=== PATIENT | male | born 1960 | race Caucasian/White ===

== ENCOUNTER 2017-12-06 07:27 | Emergency (ER) | payer MEDICAID, MEDICARE ==
--- NOTE | 2017-12-06 07:37 | EDM.PDOC ---
ED HPI GENERAL MEDICAL PROBLEM - General Stated Complaint: PATIENT IS FEELING ILL Time Seen by Provider: 12/06/17 07:31 Source of Information: Reports: Patient History Limitations: Reports: No Limitations - History of Present Illness INITIAL COMMENTS - FREE TEXT/NARRATIVE: History of present illness: []Patient presents with left-sided facial tingling since 5 AM this morning when he awoke. Patient has had 2 weeks of not feeling well and saw his doctor 3 days ago who diagnosed him with fluid in his lungs. His physician increased his water pill at that time. Review of systems: As per history of present illness and below otherwise all systems reviewed and negative. Past medical history: As per history of present illness and as reviewed below otherwise noncontributory. Surgical history: As per history of present illness and as reviewed below otherwise noncontributory. Social history: No reported history of drug or alcohol abuse. Family history: As per history of present illness and as reviewed below otherwise noncontributory. Physical exam: General: Well developed, well nourished in NAD HEENT: Atraumatic, normocephalic, pupils reactive, negative for conjunctival pallor or scleral icterus, mucous membranes moist, throat clear, neck supple, nontender, trachea midline. Lungs: Clear to auscultation, breath sounds equal bilaterally, chest nontender. Heart: S1S2, regular, negative for clicks, rubs, or JVD. Abdomen: Soft, nondistended, nontender. Negative for masses or hepatosplenomegaly. Negative for costovertebral tenderness. Pelvis: Stable nontender. Genitourinary: Deferred. Rectal: Deferred. Extremities: Atraumatic, negative for cords or calf pain. Neurovascular unremarkable. Neuro: Awake, alert, oriented. Cranial nerves II through XII unremarkable. Cerebellum unremarkable. Motor and sensory unremarkable throughout. Exam nonfocal. Diagnostics: []CT negative, chest x-ray shows cardiomegaly without CHF or effusion, troponin negative, CBC and an elevated white count of 13,000 however this is low for him and differentials normal, chemistries show mild dehydration with elevated BUN/ creatinine, INR is elevated at 3.3, TSH elevated 3.38. otherwise labs are essentially normal Therapeutics: []Patient was put on oxygen while awaiting workup his symptoms resolve spontaneously Impression: []TIA Plan: []Baby Aspirin daily, hold tonight's dose of Coumadin follow-up with your primary care this week. Definitive disposition and diagnosis as appropriate pending reevaluation and review of above. Generalized Pain Score (Numeric/FACES): 5 - Related Data Allergies Allergy/AdvReac Type Severity Reaction Status Date / Time No Known Allergies Allergy Verified 12/06/17 07:35 Home Meds: Home Meds Furosemide [Lasix] 80 mg PO DAILY 05/11/15 [History] Lisinopril 20 mg PO DAILY 05/11/15 [History] Metoprolol/Hydrochlorothiazide [Lopressor Hct 50-25 Tablet] 0 mg PO DAILY [History] Warfarin [Coumadin] 7.5 mg PO ASDIRECTED 05/11/15 [History] Albuterol [Ventolin HFA] 0 gm INH QID 07/16/15 [History] Warfarin Sodium [Coumadin] 10 mg PO ASDIRECTED 07/16/15 [History] Diltiazem HCl [Dilt-Xr] 240 mg PO DAILY 07/18/15 [History] Doxazosin [Cardura] 4 mg PO DAILY 07/18/15 [History] Flecainide [Tambocor] 100 mg PO Q12H 07/18/15 [History] Spironolactone [Aldactone] 25 mg PO BID 07/18/15 [History] Past Medical History - Past Surgical History Other Cardiovascular Surgeries/Procedures: Cardiac Ablasion Other Respiratory Surgeries/Procedures: ses CPAP Social & Family History - Tobacco Use Smoking Status *Q: Former Smoker Years of Tobacco use: 30 Packs/Tins Daily: 4 Used Tobacco, but Quit: Yes Month/Year Tobacco Last Used: 09/2012 - Recreational Drug Use Recreational Drug Use: No Recreational Drug Type: Reports: Marijuana/Hashish, Methamphetamine, Other (see below) Recreational Drug Use Frequency: Not Used In Over 6 Months ED ROS GENERAL - Review of Systems Review Of Systems: See Below (See history of present illness) ED EXAM, GENERAL - Physical Exam Exam: See Below (See history of present illness) Course - Vital Signs Last Recorded V/S: Last Vital Signs Temp 97.1 F 12/06/17 07:43 Pulse 101 H 12/06/17 07:43 Resp 22 H 12/06/17 07:43 BP 184/87 H 12/06/17 07:43 Pulse Ox 94 L 12/06/17 07:43 - Orders/Labs/Meds Orders: Active Orders 24 hr Category Date Time Status Assess Neurological Status [RC] ASDIRECTED Care 12/06/17 07:39 Active Bedrest [RC] ASDIRECTED Care 12/06/17 07:39 Active Blood Glucose Check, Bedside [RC] STAT Care 12/06/17 07:39 Active Cardiac Monitoring [RC] . DIRECTED Care 12/06/17 07:39 Active EKG Documentation Completion [RC] STAT Care 12/06/17 07:38 Active Height and Weight [RC] UPON Care 12/06/17 07:39 Active Initiate Acute Stroke Protocol [RC] STAT Care 12/06/17 07:39 Active NIH Stroke Scale [RC] ASDIRECTED Care 12/06/17 07:39 Active Nursing Bedside Swallow Screen [RC] ASDIRECTED Care 12/06/17 07:39 Active Oxygen Therapy [RC] ASDIRECTED Care 12/06/17 07:39 Active Stroke Education, General [RC] Click to Edit Care 12/06/17 07:39 Active Vital Signs [RC] Q15M Care 12/06/17 07:39 Active Chest 1V Frontal [CR] Stat Exams 12/06/17 07:41 Taken Head wo Cont [CT] Stat Exams 12/06/17 07:39 Taken Sodium Chloride 0.9% [Saline Flush] Med 12/06/17 07:38 Active 10 ml FLUSH ASDIRECTED PRN Sodium Chloride 0.9% [Saline Flush] Med 12/06/17 07:39 Active 10 ml FLUSH ASDIRECTED PRN Sodium Chloride 0.9% [Saline Flush] Med 12/06/17 07:38 Active 2.5 ml FLUSH ASDIRECTED PRN Sodium Chloride 0.9% [Saline Flush] Med 12/06/17 07:39 Active 2.5 ml FLUSH ASDIRECTED PRN Peripheral IV Insertion Adult [OM.PC] Stat Oth 12/06/17 07:39 Ordered Peripheral IV Insertion Adult [OM.PC] Stat Oth 12/06/17 07:39 Ordered Saline Lock Insert [OM.PC] Stat Oth 12/06/17 07:38 Ordered Medication Orders Sodium Chloride (Saline Flush) 10 ml FLUSH ASDIRECTED PRN PRN Reason: Keep Vein Open Sodium Chloride (Saline Flush) 2.5 ml FLUSH ASDIRECTED PRN PRN Reason: Keep Vein Open Sodium Chloride (Saline Flush) 10 ml FLUSH ASDIRECTED PRN PRN Reason: Keep Vein Open Sodium Chloride (Saline Flush) 2.5 ml FLUSH ASDIRECTED PRN PRN Reason: Keep Vein Open Labs: Laboratory Tests 12/06/17 12/06/17 12/06/17 Range/Units 08:00 08:00 08:00 WBC 13.91 H (4.0-11.0) K/uL RBC 4.81 (4.50-5.90) M/uL Hgb 12.5 L (13.0-17.0) g/dL Hct 39.5 (38.0-50.0) % MCV 82.1 (80.0-98.0) fL MCH 26.0 L (27.0-32.0) pg MCHC 31.6 (31.0-37.0) g/dL RDW Std Deviation 46.5 (28.0-62.0) fl RDW Coeff of Steven 16 H (11.0-15.0) % Plt Count 335 (150-400) K/uL MPV 9.50 (7.40-12.00) fL Neut % (Auto) 66.7 (48.0-80.0) % Lymph % (Auto) 21.7 (16.0-40.0) % [place] % (Auto) 7.6 (0.0-15.0) % Eos % (Auto) 3.6 (0.0-7.0) % Baso % (Auto) 0.4 (0.0-1.5) % Neut # (Auto) 9.3 H (1.4-5.7) K/uL Lymph # (Auto) 3.0 H (0.6-2.4) K/uL [place] # (Auto) 1.1 H (0.0-0.8) K/uL Eos # (Auto) 0.5 (0.0-0.7) K/uL Baso # (Auto) 0.1 (0.0-0.1) K/uL Nucleated RBC % 0.0 /100WBC Nucleated RBCs # 0 K/uL INR 3.36 APTT 48.0 H (18.6-31.3) SEC Sodium 137 (136-148) mmol/L Potassium 3.9 (3.5-5.1) mmol/L Chloride 98 (98-107) mmol/L Carbon Dioxide 29.6 (21.0-32.0) mmol/L BUN 29 H (7.0-18.0) mg/dL Creatinine 1.6 H (0.8-1.3) mg/dL Est Cr Clr Drug Dosing 58.26 mL/min Estimated GFR (MDRD) 44.9 ml/min Glucose 119 H (74-106) mg/dL Calcium 8.6 (8.5-10.1) mg/dL Total Bilirubin 0.2 (0.2-1.0) mg/dL AST 12 L (15-37) IU/L ALT 22 (14-63) IU/L Alkaline Phosphatase 99 (46-116) U/L Troponin I < 0.050 (0.000-0.056) ng/mL Total Protein 7.8 (6.4-8.2) g/dL Albumin 3.0 L (3.4-5.0) g/dL Globulin 4.8 H (2.0-3.5) g/dL Albumin/Globulin Ratio 0.6 L (1.3-2.8) TSH 3rd Generation 3.83 H (0.36-3.74) uIU/mL Meds: Medications Generic Name Dose Route Start Last Admin Trade Name Freq PRN Reason Stop Dose Admin Sodium Chloride 10 ml 12/06/17 07:38 Saline Flush FLUSH ASDIRECTED PRN Keep Vein Open Sodium Chloride 2.5 ml 12/06/17 07:38 Saline Flush FLUSH ASDIRECTED PRN Keep Vein Open Sodium Chloride 10 ml 12/06/17 07:39 Saline Flush FLUSH ASDIRECTED PRN Keep Vein Open Sodium Chloride 2.5 ml 12/06/17 07:39 Saline Flush FLUSH ASDIRECTED PRN Keep Vein Open Departure - Departure Time of Disposition: 09:06 Disposition: Home, Self-Care 01 Condition: Good Clinical Impression: TIA (transient ischemic attack) - Discharge Information Additional Instructions: The following information is given to patients seen in the emergency department who are being discharged to home. This information is to outline your options for follow-up care. We provide all patients seen in our emergency department with a follow-up referral. The need for follow-up, as well as the timing and circumstances, are variable depending upon the specifics of your emergency department visit. If you don't have a primary care physician on staff, we will provide you with a referral. We always advise you to contact your personal physician following an emergency department visit to inform them of the circumstance of the visit and for follow-up with them and/or the need for any referrals to a consulting specialist. The emergency department will also refer you to a specialist when appropriate. This referral assures that you have the opportunity for follow-up care with a specialist. All of these measure are taken in an effort to provide you with optimal care, which includes your follow-up. Under all circumstances we always encourage you to contact your private physician who remains a resource for coordinating your care. When calling for follow-up care, please make the office aware that this follow-up is from your recent emergency room visit. If for any reason you are refused follow-up, please contact the [facility] Emergency Department at and asked to speak to the emergency department charge nurse. Hold tonight's dose of Coumadin before restarting tomorrow night. Baby aspirin daily, follow-up with primary care this week. Return if symptoms worsen [facility] [address] [place] [id number] - My Orders Last 24 Hours: My Active Orders 12/06/17 07:38 EKG Documentation Completion [RC] STAT Sodium Chloride 0.9% [Saline Flush] 10 ml FLUSH ASDIRECTED PRN Sodium Chloride 0.9% [Saline Flush] 2.5 ml FLUSH ASDIRECTED PRN Saline Lock Insert [OM.PC] Stat 12/06/17 07:39 Assess Neurological Status [RC] ASDIRECTED Bedrest [RC] ASDIRECTED Blood Glucose Check, Bedside [RC] STAT Cardiac Monitoring [RC] . DIRECTED Height and Weight [RC] UPON Initiate Acute Stroke Protocol [RC] STAT NIH Stroke Scale [RC] ASDIRECTED Nursing Bedside Swallow Screen [RC] ASDIRECTED Oxygen Therapy [RC] ASDIRECTED Stroke Education, General [RC] Click to Edit Vital Signs [RC] Q15M Head wo Cont [CT] Stat Sodium Chloride 0.9% [Saline Flush] 10 ml FLUSH ASDIRECTED PRN Sodium Chloride 0.9% [Saline Flush] 2.5 ml FLUSH ASDIRECTED PRN Peripheral IV Insertion Adult [OM.PC] Stat Peripheral IV Insertion Adult [OM.PC] Stat 12/06/17 07:41 Chest 1V Frontal [CR] Stat - Assessment/Plan Last 24 Hours: My Active Orders 12/06/17 07:38 EKG Documentation Completion [RC] STAT Sodium Chloride 0.9% [Saline Flush] 10 ml FLUSH ASDIRECTED PRN Sodium Chloride 0.9% [Saline Flush] 2.5 ml FLUSH ASDIRECTED PRN Saline Lock Insert [OM.PC] Stat 12/06/17 07:39 Assess Neurological Status [RC] ASDIRECTED Bedrest [RC] ASDIRECTED Blood Glucose Check, Bedside [RC] STAT Cardiac Monitoring [RC] . DIRECTED Height and Weight [RC] UPON Initiate Acute Stroke Protocol [RC] STAT NIH Stroke Scale [RC] ASDIRECTED Nursing Bedside Swallow Screen [RC] ASDIRECTED Oxygen Therapy [RC] ASDIRECTED Stroke Education, General [RC] Click to Edit Vital Signs [RC] Q15M Head wo Cont [CT] Stat Sodium Chloride 0.9% [Saline Flush] 10 ml FLUSH ASDIRECTED PRN Sodium Chloride 0.9% [Saline Flush] 2.5 ml FLUSH ASDIRECTED PRN Peripheral IV Insertion Adult [OM.PC] Stat Peripheral IV Insertion Adult [OM.PC] Stat 12/06/17 07:41 Chest 1V Frontal [CR] Stat
[2017-12-06] MEDS ORDERED: Sodium Chloride 0.9% 10 ML Syringe FLUSH PRN ×2 (07:38→07:39)
[2017-12-06] MEDS ORDERED: Sodium Chloride 0.9% 2.5 ML Syringe FLUSH PRN ×2 (07:38→07:39)
[2017-12-06 08:41] LABS: CHLORIDE,CL 98 mmol/L (98-107); SODIUM,NA 137 mmol/L (136-148)
[2017-12-06 09:21] VITALS: BP 141/115
--- NOTE | 2017-12-07 13:20 | CR ---
EXAM DATE: 12/06/17 PATIENT'S AGE: 57 Patient: DERRICK ROSS Facility: [place], [place] Site . Site : 1960 Study: XRay Chest [id number]/[id number] 7:56:50 AM Ordering Physician: Doctor Rucker Final Report: INDICATION: stroke code TECHNIQUE: AP chest film submitted. COMPARISON: Chest x-rays 07/18/2015. FINDINGS: Borderline cardiomegaly. Pulmonary vasculature is upper limits of normal. No focal infiltrates are seen. Cardiac pacemaker with electrode tips projected over the right atrium and right ventricle. IMPRESSION: Borderline cardiomegaly without overt CHF or acute infiltrate. Dictated by Reinaldo Underwood MD @ 12/06/2017 8:13:34 AM Dictated by: Reinaldo Underwood MD @ 12/06/2017 08:13:40 (Electronic Signature) Report Signed by Proxy. SUGAR
--- NOTE | 2017-12-07 13:21 | CT ---
EXAM DATE: 12/06/17 PATIENT'S AGE: 57 Patient: DERRICK ROSS Facility: [place], [place] Site . Site : 1960 Study: CT Head STROKE PROTOCOL STROKE PROTOCOL [id number]/1/2018 7:57:50 AM Ordering Physician: Doctor Rucker Final Report: Indication: Facial tingling this a.m.. Technique: Performed without IV contrast. Comparison: None available. Findings: No mass lesion or ventricular obstruction. No hemorrhage is identified. No brain edema or ischemia is localized on this exam. No encephalomalacia. The calvarium and skull base are unremarkable, with normal aeration of the visualized petrous temporal bones and paranasal sinuses on both sides. Impression: Negative CT head. Please note that all CT scans at this facility use dose modulation, iterative reconstruction, and/or weight-based dosing when appropriate to reduce radiation dose to as low as reasonably achievable. Dictated by Adebayo Adams MD @ Dec 06 2017 8:04AM (Electronic Signature) Report Signed by Proxy. SUGAR
== END 2017-12-06 09:10 | disposition home or self-care (01) ==
LOC: MW.ED 07:27
DX: G45.9 Transient cerebral ischemic attack, unspecified (principal); Z79.82 Long term (current) use of aspirin; Z79.01 Long term (current) use of anticoagulants; Z86.73 Personal history of transient ischemic attack (TIA), and cerebral infarction without residual deficits; Z79.899 Other long term (current) drug therapy; Z87.891 Personal history of nicotine dependence; R20.0 Anesthesia of skin; T17.228A Food in pharynx causing other injury, initial encounter; I48.91 Unspecified atrial fibrillation; I10 Essential (primary) hypertension
CPT/HCPCS: 36415; 70450; 70450-26; 71045; 71045-26; 80053; 84443; 84484; 85025; 85610; 85730; 93005; 99282; 99283; 99284; 99285-25

== ENCOUNTER 2017-12-06 11:08 | Emergency (ER) | payer MEDICARE ==
--- NOTE | 2017-12-06 11:52 | EDM.PDOC ---
ED HPI GENERAL MEDICAL PROBLEM - General Chief Complaint: ENT Problem Stated Complaint: FEELING SOMETHING IN HIS THROAT Time Seen by Provider: 12/06/17 11:16 Source of Information: Reports: Patient History Limitations: Reports: No Limitations - History of Present Illness INITIAL COMMENTS - FREE TEXT/NARRATIVE: History of present illness: []Patient arrives complaining of a piece of black licorice stuff on the side of his throat. Patient was just seen in the ED for right-sided facial numbness and was diagnosed with a TIA. Patient refused admission and went home. He returns with a completely different complaint states he ate a piece of licorice at midnight last night did not remember choking or having any coughing episodes but this morning taste black licorice. He continues to cough but denies shortness of breath is tolerating saliva without any vomiting. He denies any chest pain or recurrence of his facial numbness. Review of systems: As per history of present illness and below otherwise all systems reviewed and negative. Past medical history: As per history of present illness and as reviewed below otherwise noncontributory. Surgical history: As per history of present illness and as reviewed below otherwise noncontributory. Social history: No reported history of drug or alcohol abuse. Family history: As per history of present illness and as reviewed below otherwise noncontributory. Physical exam: General: Well developed, well nourished in NAD HEENT: Atraumatic, normocephalic, pupils reactive, negative for conjunctival pallor or scleral icterus, mucous membranes moist, throat clear no erythema or edema, neck supple, nontender, trachea midline. No stridor Lungs: Clear to auscultation, breath sounds equal bilaterally, chest nontender. Heart: S1S2, regular, negative for clicks, rubs, or JVD. Abdomen: Soft, nondistended, nontender. Negative for masses or hepatosplenomegaly. Negative for costovertebral tenderness. Pelvis: Stable nontender. Genitourinary: Deferred. Rectal: Deferred. Extremities: Atraumatic. Neurovascular unremarkable. Neuro: Awake, alert, oriented. Cranial nerves II through XII unremarkable. Cerebellum unremarkable. Motor and sensory unremarkable throughout. Exam nonfocal. Diagnostics: [] Therapeutics: []Gave patient by mouth challenge tolerated it well patient then refused to stay stating that we were not doing anything for him. Impression: []Nonobstructing food bolus and throat Plan: []Follow-up with PMD and or ENT Definitive disposition and diagnosis as appropriate pending reevaluation and review of above. - Related Data Allergies Allergy/AdvReac Type Severity Reaction Status Date / Time No Known Allergies Allergy Verified 12/06/17 07:35 Home Meds: Home Meds Furosemide [Lasix] 80 mg PO DAILY 05/11/15 [History] Lisinopril 20 mg PO DAILY 05/11/15 [History] Metoprolol/Hydrochlorothiazide [Lopressor Hct 50-25 Tablet] 0 mg PO DAILY [History] Warfarin [Coumadin] 7.5 mg PO ASDIRECTED 05/11/15 [History] Albuterol [Ventolin HFA] 0 gm INH QID 07/16/15 [History] Warfarin Sodium [Coumadin] 10 mg PO ASDIRECTED 07/16/15 [History] Diltiazem HCl [Dilt-Xr] 240 mg PO DAILY 07/18/15 [History] Doxazosin [Cardura] 4 mg PO DAILY 07/18/15 [History] Flecainide [Tambocor] 100 mg PO Q12H 07/18/15 [History] Spironolactone [Aldactone] 25 mg PO BID 07/18/15 [History] Past Medical History Cardiovascular History: Reports: Afib, Hypertension - Past Surgical History Other Cardiovascular Surgeries/Procedures: Cardiac Ablasion Other Respiratory Surgeries/Procedures: ses CPAP Social & Family History - Tobacco Use Smoking Status *Q: Former Smoker Years of Tobacco use: 30 Packs/Tins Daily: 4 Used Tobacco, but Quit: Yes Month/Year Tobacco Last Used: 09/2012 Second Hand Smoke Exposure: No - Caffeine Use Caffeine Use: Reports: Other - Recreational Drug Use Recreational Drug Use: No Recreational Drug Type: Reports: Marijuana/Hashish, Methamphetamine, Other (see below) Recreational Drug Use Frequency: Not Used In Over 6 Months ED ROS ENT - Review of Systems Review Of Systems: See Below (See history of present illness) ED EXAM, ENT - Physical Exam Exam: See Below (See history of present illness) Course - Vital Signs Last Recorded V/S: Last Vital Signs Temp 96.6 F 12/06/17 11:33 Pulse 108 H 12/06/17 11:33 Resp 18 12/06/17 11:33 BP Pulse Ox 96 12/06/17 11:33 - Re-Assessments/Exams Free Text/Narrative Re-Assessment/Exam: Patient is very impatient and angry, refuses to listen to any recommendations, started wheeling out of his room in his wheelchair as I attempted to give him instructions for follow-up. 12/07/17 07:21 Departure - Departure Time of Disposition: 11:55 Disposition: Home, Self-Care 01 Condition: Fair Clinical Impression: Foreign body sensation in throat - Discharge Information Referrals: PCP,None [Primary Care Provider] - Forms: ED Department Discharge Additional Instructions: The following information is given to patients seen in the emergency department who are being discharged to home. This information is to outline your options for follow-up care. We provide all patients seen in our emergency department with a follow-up referral. The need for follow-up, as well as the timing and circumstances, are variable depending upon the specifics of your emergency department visit. If you don't have a primary care physician on staff, we will provide you with a referral. We always advise you to contact your personal physician following an emergency department visit to inform them of the circumstance of the visit and for follow-up with them and/or the need for any referrals to a consulting specialist. The emergency department will also refer you to a specialist when appropriate. This referral assures that you have the opportunity for follow-up care with a specialist. All of these measure are taken in an effort to provide you with optimal care, which includes your follow-up. Under all circumstances we always encourage you to contact your private physician who remains a resource for coordinating your care. When calling for follow-up care, please make the office aware that this follow-up is from your recent emergency room visit. If for any reason you are refused follow-up, please contact the [facility] Emergency Department at and asked to speak to the emergency department charge nurse. Follow-up with primary care and/or ENT return if any difficulty breathing, vomiting or unable to swallow saliva. [facility] [address] [place] [id number] [facility] - ENT [address] [place] [id number]
== END 2017-12-06 11:55 | disposition home or self-care (01) ==
LOC: MW.ED 11:08
DX: T17.228A Food in pharynx causing other injury, initial encounter (principal); I48.91 Unspecified atrial fibrillation; I10 Essential (primary) hypertension; Z87.891 Personal history of nicotine dependence; Z79.899 Other long term (current) drug therapy; Z79.01 Long term (current) use of anticoagulants
CPT/HCPCS: 93005; 99282; 99283

== ENCOUNTER 2020-01-14 09:21 | Emergency (ER) | payer MEDICARE ==
[2020-01-14] MEDS ORDERED: Acetaminophen 500 MG Tab PO ONE (09:35)
[2020-01-14 09:36] VITALS: BP 142/67
--- NOTE | 2020-01-14 09:39 | EDM.PDOC ---
ED HPI GENERAL MEDICAL PROBLEM - General Chief Complaint: Lower Extremity Injury/Pain Stated Complaint: RT FOOT PAIN Time Seen by Provider: 01/14/20 09:29 - History of Present Illness INITIAL COMMENTS - FREE TEXT/NARRATIVE: History of present illness: [Presents with atraumatic afebrile right foot pain that began this morning while he was laying in bed is the dorsal lateral aspect of his right foot has been painful and tender for no particular reason no traumas have occurred he does not remember rolling his foot he does not have any fever chills there is no redness there is no rash nothing makes it better touching it makes it worse] Review of systems: As per history of present illness and below otherwise all systems reviewed and negative. Past medical history: As per history of present illness and as reviewed below otherwise noncontributory. Surgical history: As per history of present illness and as reviewed below otherwise noncontributory. Social history: No reported history of drug or alcohol abuse. Family history: As per history of present illness and as reviewed below otherwise noncontributory. Physical exam: Constitutional: Patient is morbidly obese and disheveled HEENT: Atraumatic, normocephalic, pupils reactive, negative for conjunctival pallor or scleral icterus, mucous membranes moist, throat clear, neck supple, nontender, trachea midline. Lungs: Clear to auscultation, breath sounds equal bilaterally, chest nontender. Heart: S1S2, regular, negative for clicks, rubs, or JVD. Abdomen: Soft, nondistended, nontender. Negative for masses or hepatosplenomegaly. Negative for costovertebral tenderness. Pelvis: Stable nontender. Genitourinary: Deferred. Rectal: Deferred. Extremities: Atraumatic, negative for cords or calf pain. Neurovascular unremarkable. 2+ pitting edema is noted there is no cellulitis no evidence of infection no swelling no ecchymosis no signs of injury to the right foot there is good distal pulse motor and sensation Neuro: Awake, alert, oriented. Cranial nerves II through XII unremarkable. Cerebellum unremarkable. Motor and sensory unremarkable throughout. Exam nonfocal. Diagnostics: X-ray [] Therapeutics: Tylenol [] Impression: Foot pain [] Plan: We will obtain x-ray give Tylenol and reassess [] Definitive disposition and diagnosis as appropriate pending reevaluation and review of above. right foot Pain Score (Numeric/FACES): 10 - Related Data Allergies Allergy/AdvReac Type Severity Reaction Status Date / Time No Known Allergies Allergy Verified 12/06/17 07:35 Home Meds: Home Meds Furosemide [Lasix] 80 mg PO DAILY 05/11/15 [History] Lisinopril 20 mg PO DAILY 05/11/15 [History] Metoprolol/Hydrochlorothiazide [Lopressor Hct 50-25 Tablet] 0 mg PO DAILY [History] Warfarin [Coumadin] 7.5 mg PO ASDIRECTED 05/11/15 [History] Albuterol [Ventolin HFA] 0 gm INH QID 07/16/15 [History] Warfarin Sodium [Coumadin] 10 mg PO ASDIRECTED 07/16/15 [History] Doxazosin [Cardura] 4 mg PO DAILY 07/18/15 [History] Flecainide [Tambocor] 100 mg PO Q12H 07/18/15 [History] Spironolactone [Aldactone] 25 mg PO BID 07/18/15 [History] dilTIAZem HCL [Dilt-Xr] 240 mg PO DAILY 07/18/15 [History] traMADol [Ultram] 50 mg PO Q6H PRN #15 tab 01/14/20 [Rx] Past Medical History Cardiovascular History: Reports: Afib, Hypertension - Past Surgical History Other Cardiovascular Surgeries/Procedures: Cardiac Ablasion Other Respiratory Surgeries/Procedures: ses CPAP Social & Family History - Caffeine Use Caffeine Use: Reports: Other Review of Systems - Review of Systems Review Of Systems: See Below ED EXAM, GENERAL - Physical Exam Exam: See Below Course - Vital Signs Text/Narrative:: 2 view right foot read and interpreted by me there is degenerative joint changes however no acute fractures are noted We will be discharged home with tramadol follow-up with primary care Last Recorded V/S: Last Vital Signs Temp 36.2 C 01/14/20 09:34 Pulse 73 01/14/20 09:34 Resp 20 01/14/20 09:34 BP 142/67 H 01/14/20 09:34 Pulse Ox 93 L 01/14/20 09:34 - Orders/Labs/Meds Orders: Active Orders 24 hr Category Date Time Status Foot 2V Rt [CR] Stat Exams 01/14/20 09:36 Ordered Meds: Medications Discontinued Medications Generic Name Dose Route Start Last Admin Trade Name Juventino PRN Reason Stop Dose Admin Acetaminophen 1,000 mg 01/14/20 09:35 01/14/20 09:46 Tylenol Extra Strength PO 01/14/20 09:36 1,000 mg ONETIME ONE Administration Departure - Departure Time of Disposition: 09:59 Disposition: Home, Self-Care 01 Condition: Good Clinical Impression: Foot pain, right - Discharge Information *PRESCRIPTION DRUG MONITORING PROGRAM REVIEWED*: Not Applicable *COPY OF PRESCRIPTION DRUG MONITORING REPORT IN PATIENT FUENTES: Not Applicable Instructions: Foot Sprain Referrals: Abhinav Quevedo MD [Primary Care Provider] - Forms: ED Department Discharge Additional Instructions: The following information is given to patients seen in the emergency department who are being discharged to home. This information is to outline your options for follow-up care. We provide all patients seen in our emergency department with a follow-up referral. The need for follow-up, as well as the timing and circumstances, are variable depending upon the specifics of your emergency department visit. If you don't have a primary care physician on staff, we will provide you with a referral. We always advise you to contact your personal physician following an emergency department visit to inform them of the circumstance of the visit and for follow-up with them and/or the need for any referrals to a consulting specialist. The emergency department will also refer you to a specialist when appropriate. This referral assures that you have the opportunity for follow-up care with a specialist. All of these measure are taken in an effort to provide you with optimal care, which includes your follow-up. Under all circumstances we always encourage you to contact your private physician who remains a resource for coordinating your care. When calling for follow-up care, please make the office aware that this follow-up is from your recent emergency room visit. If for any reason you are refused follow-up, please contact the [facility] Emergency Department at and asked to speak to the emergency department charge nurse. Keli Bravo [facility] - Primary Care [address] [place] [address] [id number] [address] [address] [facility] Professional Building [address] [place] [address], [address] [place] [address] Sepsis Event Note - Evaluation Sepsis Screening Result: No Definite Risk - Focused Exam Vital Signs: Vital Signs Temp Pulse Resp BP Pulse Ox 01/14/20 09:34 36.2 C 73 20 142/67 H 93 L Date Exam was Performed: 01/14/20 Time Exam was Performed: 09:58 - My Orders Last 24 Hours: My Active Orders 01/14/20 09:36 Foot 2V Rt [CR] Stat - Assessment/Plan Last 24 Hours: My Active Orders 01/14/20 09:36 Foot 2V Rt [CR] Stat
--- NOTE | 2020-01-14 10:09 | CR ---
Right foot: 2 views of the right foot were obtained. Comparison: No prior right foot study is available. Small spur is noted at the attachment of the Achilles tendon to the calcaneus. No discrete fracture or other bony abnormality is appreciated. Impression: 1. Small calcaneal spur. 2. No additional abnormality is appreciated on 2 view right foot exam. Diagnostic code #2 This report was dictated in MDT
[2020-01-14 10:51] VITALS: PULSE 72
== END 2020-01-14 10:15 | disposition home or self-care (01) ==
LOC: MW.ED 09:21
DX: M79.671 Pain in right foot (principal); I48.91 Unspecified atrial fibrillation; I10 Essential (primary) hypertension; Z79.01 Long term (current) use of anticoagulants; Z79.899 Other long term (current) drug therapy
CPT/HCPCS: 73620; 99283; A9270

== ENCOUNTER 2020-07-19 12:07 | Emergency (ER) | payer MEDICARE ==
[2020-07-19] MEDS ORDERED: Sodium Chloride 0.9% 10 ML Syringe FLUSH PRN (12:10)
[2020-07-19] MEDS ORDERED: Sodium Chloride 0.9% 2.5 ML Syringe FLUSH PRN (12:10)
[2020-07-19] MEDS ORDERED: Haloperidol Lactate 5 MG/ML SDV IM ONE (12:13)
[2020-07-19] MEDS ORDERED: Haloperidol Lactate 5 MG/ML SDV ONE (12:14)
--- NOTE | 2020-07-19 12:31 | PCM.SN.2 ---
- Free Text/Narrative Note: Called by nursing for difficult IV start. Ultrasound used to examine the Rt arm. Due to the combative nature of the patient images were not saved. 20g PIV started to Rt wrist. 10mL of blood was drawn for lab. IV secured with tape and tegaderm. IV flushes with ease. Anesthesia Time [id number].
--- NOTE | 2020-07-19 12:35 | EDM.PDOC ---
ED HPI GENERAL MEDICAL PROBLEM - General Chief Complaint: Respiratory Problem Stated Complaint: CHEST PAIN Time Seen by Provider: 07/19/20 12:10 Source of Information: Reports: Patient, EMS History Limitations: Reports: Other (clinical condition, combative) - History of Present Illness INITIAL COMMENTS - FREE TEXT/NARRATIVE: 60-year-old male past medical history CAD, COPD, TIA, on warfarin, Lasix 80 mg daily presents for "feeling sick "times roughly 1 week. Patient is poor historian secondary to clinical condition. History primarily from EMS. They note that patient has been feeling unwell for the last week or so. On arrival to his house he was found diaphoretic, pale, tachypneic. Patient has difficulty describing exactly what he is feeling, he is combative. - Related Data Allergies Allergy/AdvReac Type Severity Reaction Status Date / Time Sulfa (Sulfonamide Allergy Unknown Rash Verified 07/19/20 12:33 Antibiotics) Home Meds: Home Meds Furosemide [Lasix] 80 mg PO DAILY 05/11/15 [History] Lisinopril 20 mg PO DAILY 05/11/15 [History] Metoprolol/Hydrochlorothiazide [Lopressor Hct 50-25 Tablet] 0 mg PO DAILY 05/11/15 [History] Warfarin [Coumadin] 7.5 mg PO ASDIRECTED 05/11/15 [History] Albuterol [Ventolin HFA] 0 gm INH QID 07/16/15 [History] Warfarin Sodium [Coumadin] 10 mg PO ASDIRECTED 07/16/15 [History] Doxazosin [Cardura] 4 mg PO DAILY 07/18/15 [History] Flecainide [Tambocor] 100 mg PO Q12H 07/18/15 [History] Spironolactone [Aldactone] 25 mg PO BID 07/18/15 [History] dilTIAZem HCL [Dilt-Xr] 240 mg PO DAILY 07/18/15 [History] traMADol [Ultram] 50 mg PO Q6H PRN #15 tab 01/14/20 [Rx] Past Medical History Cardiovascular History: Reports: Afib, Hypertension - Infectious Disease History Infectious Disease History: Reports: None - Past Surgical History Other Cardiovascular Surgeries/Procedures: Cardiac Ablasion Other Respiratory Surgeries/Procedures: ses CPAP Social & Family History - Family History Family Medical History: No Pertinent Family History - Caffeine Use Caffeine Use: Reports: Other ED ROS GENERAL - Review of Systems Review Of Systems: Comprehensive ROS is negative, except as noted in HPI. ED EXAM, GENERAL - Physical Exam Exam: See Below Exam Limited By: Uncooperative General Appearance: Alert, Anxious, Obese, Other (distress, combative, morbidly obese and unkempt) Eye Exam: Bilateral Eye: PERRL Throat/Mouth: Normal Voice, No Airway Compromise Head: Atraumatic, Normocephalic Respiratory/Chest: Respiratory Distress (tacphyneic ) Cardiovascular: Normal Peripheral Pulses, Regular Rate, Rhythm GI/Abdominal: Soft, Hernia Extremities: Normal Inspection Neurological: Alert Skin Exam: Warm, Dry, Intact ED CENTRAL LINE INSERTION - Central Line Insertion Central Line Indication: IV access, medication administration Site: internal jugular (R) Prep: CDC/MBT Guidelines, Sterile Drapes, Chlorhexidine Lumen: triple Gauge: 7Fr Local Anesthesia - Lidocaine (Xylocaine): 1% with EPI Local Anesthetic Volume: 5cc Ultrasound guided: Yes Guidewire and dilator removed intact: Yes Complications: No Secured with suture: Yes Post placement confirmation: all ports aspirated, all ports flushed Dressing applied: by provider Central line comment: No complications #1 Interpretation EKG Date: 07/19/20 Time: 12:29 Rhythm: NSR Rate (Beats/Min): 70 [place]: Normal P-Wave: Present QRS: Normal ST-T: Normal QT: Normal KS/PQ Interval: 154 EKG Interpretation Comments: RBBB Course - Vital Signs Last Recorded V/S: Last Vital Signs Temp 95.2 F L 07/19/20 15:03 Pulse 70 07/19/20 15:03 Resp 24 H 07/19/20 15:03 BP 73/37 L 07/19/20 14:52 Pulse Ox 97 07/19/20 15:03 - Orders/Labs/Meds Orders: Active Orders 24 hr Category Date Time Status Cardiac Monitoring [RC] . DIRECTED Care 07/19/20 12:11 Active EKG Documentation Completion [RC] STAT Care 07/19/20 12:10 Active Pulse Oximetry [RC] ASDIRECTED Care 07/19/20 12:11 Active RT BiPAP/CPAP [RC] ASDIRECTED Care 07/19/20 12:54 Active CORONAVIRUS COVID-19 PCR PHL Stat Lab 07/19/20 12:10 Ordered CULTURE BLOOD [BC] Stat Lab 07/19/20 13:00 Received CULTURE BLOOD [BC] Stat Lab 07/19/20 13:10 Received Dextrose 50% in Water Med 07/19/20 13:05 Active 50 ml IV ASDIRECTED PRN Dextrose 50% in Water Med 07/19/20 13:08 Active 50 ml IV ASDIRECTED PRN Dextrose 50% in Water Med 07/19/20 13:21 Active 50 ml IV ASDIRECTED PRN Glucagon,Human Recombinant [GlucaGen] Med 07/19/20 13:08 Active 1 mg IM ASDIRECTED PRN Glucagon,Human Recombinant [GlucaGen] Med 07/19/20 13:21 Active 1 mg IM ASDIRECTED PRN Sodium Chloride 0.9% [Normal Saline] 1,000 ml Med 07/19/20 15:15 Active IV ASDIRECTED Sodium Chloride 0.9% [Saline Flush] Med 07/19/20 12:10 Active 10 ml FLUSH ASDIRECTED PRN Sodium Chloride 0.9% [Saline Flush] Med 07/19/20 12:10 Active 2.5 ml FLUSH ASDIRECTED PRN Blood Culture x2 Reflex Set [OM.PC] Stat Oth 07/19/20 12:43 Ordered Saline Lock Insert [OM.PC] Stat Oth 07/19/20 12:11 Ordered Medication Orders Dextrose/Water (Dextrose 50% In Water) 50 ml IV ASDIRECTED PRN PRN Reason: Hypoglycemia Dextrose/Water (Dextrose 50% In Water) 50 ml IV ASDIRECTED PRN PRN Reason: Hypoglycemia Dextrose/Water (Dextrose 50% In Water) 50 ml IV ASDIRECTED PRN PRN Reason: Hypoglycemia Glucagon (Glucagen) 1 mg IM ASDIRECTED PRN PRN Reason: Hypoglycemia Glucagon (Glucagen) 1 mg IM ASDIRECTED PRN PRN Reason: Hypoglycemia Sodium Chloride (Normal Saline) 1,000 mls @ 999 mls/hr IV ASDIRECTED ARNOLD Last Admin: 07/19/20 15:15 Dose: 999 mls/hr Documented by: MOLLY Sodium Chloride (Saline Flush) 10 ml FLUSH ASDIRECTED PRN PRN Reason: Keep Vein Open Sodium Chloride (Saline Flush) 2.5 ml FLUSH ASDIRECTED PRN PRN Reason: Keep Vein Open Labs: Laboratory Tests 07/19/20 07/19/20 07/19/20 Range/Units 12:23 12:25 12:25 WBC 17.08 H (4.0-11.0) K/uL RBC 2.95 L (4.50-5.90) M/uL Hgb 7.7 L (13.0-17.0) g/dL Hct 26.3 L (38.0-50.0) % MCV 89.2 (80.0-98.0) fL MCH 26.1 L (27.0-32.0) pg MCHC 29.3 L (31.0-37.0) g/dL RDW Std Deviation 54.6 (28.0-62.0) fl RDW Coeff of Steven 17 H (11.0-15.0) % Plt Count 372 (150-400) K/uL MPV 10.20 (7.40-12.00) fL Add Manual Diff YES Neutrophils % (Manual) 70 (48.0-80.0) % Band Neutrophils % 1 % Lymphocytes % (Manual) 20 (16.0-40.0) % Monocytes % (Manual) 9 (0.0-15.0) % Nucleated RBC % 0.7 /100WBC Absolute Seg Neuts 12.0 H (1.4-5.7) Band Neutrophils # 0.2 Lymphocytes # (Manual) 3.4 H (0.6-2.4) Monocytes # (Manual) 1.5 H (0.0-0.8) Nucleated RBCs # 0 K/uL INR APTT (18.6-31.3) SEC ABG pH 7.278 L (7.35-7.45) ABG pCO2 46 H (35-45) mmHG ABG pO2 52 L (75-100) mmHG ABG HCO3 22 (22-26) mEq/L ABG Total CO2 21.4 ABG Base Excess -4.8 L (-2.0-2.0) Lactate 4.8 H* (0.20-2.00) mmol/L Sodium (136-148) mmol/L Potassium (3.5-5.1) mmol/L Chloride (98-107) mmol/L Carbon Dioxide (21.0-32.0) mmol/L BUN (7.0-18.0) mg/dL Creatinine (0.8-1.3) mg/dL Est Cr Clr Drug Dosing Estimated GFR (MDRD) ml/min Glucose (74-106) mg/dL POC Glucose (60-110) mg/dL Calcium (8.5-10.1) mg/dL Magnesium (1.8-2.4) mg/dL Total Bilirubin (0.2-1.0) mg/dL AST (15-37) IU/L ALT (14-63) IU/L Alkaline Phosphatase (46-116) U/L Troponin I (0.000-0.056) ng/mL C-Reactive Protein (0.00-0.90) mg/dL B-Natriuretic Peptide (<100) PG/ML Total Protein (6.4-8.2) g/dL Albumin (3.4-5.0) g/dL Globulin (2.6-4.0) g/dL Albumin/Globulin Ratio (0.9-1.6) Lipase (73-393) U/L Urine Color Urine Appearance Urine pH (5.0-8.0) Ur Specific Halfway (1.001-1.035) Urine Protein (NEGATIVE) mg/dL Urine Glucose (UA) (NEGATIVE) mg/dL Urine Ketones (NEGATIVE) mg/dL Urine Occult Blood (NEGATIVE) Urine Nitrite (NEGATIVE) Urine Bilirubin (NEGATIVE) Urine Urobilinogen (<2.0) EU/dL Ur Leukocyte Esterase (NEGATIVE) Ketones (NEG) SARS CoV-2 RNA Rapid YAZMIN (NEGATIVE) 07/19/20 07/19/20 07/19/20 Range/Units 12:25 12:25 12:25 WBC (4.0-11.0) K/uL RBC (4.50-5.90) M/uL Hgb (13.0-17.0) g/dL Hct (38.0-50.0) % MCV (80.0-98.0) fL MCH (27.0-32.0) pg MCHC (31.0-37.0) g/dL RDW Std Deviation (28.0-62.0) fl RDW Coeff of Steven (11.0-15.0) % Plt Count (150-400) K/uL MPV (7.40-12.00) fL Add Manual Diff Neutrophils % (Manual) (48.0-80.0) % Band Neutrophils % % Lymphocytes % (Manual) (16.0-40.0) % Monocytes % (Manual) (0.0-15.0) % Nucleated RBC % /100WBC Absolute Seg Neuts (1.4-5.7) Band Neutrophils # Lymphocytes # (Manual) (0.6-2.4) Monocytes # (Manual) (0.0-0.8) Nucleated RBCs # K/uL INR 3.91 APTT 50.3 H (18.6-31.3) SEC ABG pH (7.35-7.45) ABG pCO2 (35-45) mmHG ABG pO2 (75-100) mmHG ABG HCO3 (22-26) mEq/L ABG Total CO2 ABG Base Excess (-2.0-2.0) Lactate (0.20-2.00) mmol/L Sodium 128 L (136-148) mmol/L Potassium 7.1 H* (3.5-5.1) mmol/L Chloride 95 L (98-107) mmol/L Carbon Dioxide 21.8 (21.0-32.0) mmol/L BUN 171 H (7.0-18.0) mg/dL Creatinine 3.4 H (0.8-1.3) mg/dL Est Cr Clr Drug Dosing TNP Estimated GFR (MDRD) 18.6 ml/min Glucose 555 H* (74-106) mg/dL POC Glucose (60-110) mg/dL Calcium 8.0 L (8.5-10.1) mg/dL Magnesium 3.0 H (1.8-2.4) mg/dL Total Bilirubin 0.4 (0.2-1.0) mg/dL AST 14 L (15-37) IU/L ALT 26 (14-63) IU/L Alkaline Phosphatase 83 (46-116) U/L Troponin I < 0.050 (0.000-0.056) ng/mL C-Reactive Protein 3.30 H (0.00-0.90) mg/dL B-Natriuretic Peptide 14 (<100) PG/ML Total Protein 6.6 (6.4-8.2) g/dL Albumin 2.7 L (3.4-5.0) g/dL Globulin 3.9 (2.6-4.0) g/dL Albumin/Globulin Ratio 0.7 L (0.9-1.6) Lipase 305 (73-393) U/L Urine Color Urine Appearance Urine pH (5.0-8.0) Ur Specific Halfway (1.001-1.035) Urine Protein (NEGATIVE) mg/dL Urine Glucose (UA) (NEGATIVE) mg/dL Urine Ketones (NEGATIVE) mg/dL Urine Occult Blood (NEGATIVE) Urine Nitrite (NEGATIVE) Urine Bilirubin (NEGATIVE) Urine Urobilinogen (<2.0) EU/dL Ur Leukocyte Esterase (NEGATIVE) Ketones (NEG) SARS CoV-2 RNA Rapid YAZMIN (NEGATIVE) 07/19/20 07/19/20 07/19/20 Range/Units 12:25 13:17 13:50 WBC (4.0-11.0) K/uL RBC (4.50-5.90) M/uL Hgb (13.0-17.0) g/dL Hct (38.0-50.0) % MCV (80.0-98.0) fL MCH (27.0-32.0) pg MCHC (31.0-37.0) g/dL RDW Std Deviation (28.0-62.0) fl RDW Coeff of Steven (11.0-15.0) % Plt Count (150-400) K/uL MPV (7.40-12.00) fL Add Manual Diff Neutrophils % (Manual) (48.0-80.0) % Band Neutrophils % % Lymphocytes % (Manual) (16.0-40.0) % Monocytes % (Manual) (0.0-15.0) % Nucleated RBC % /100WBC Absolute Seg Neuts (1.4-5.7) Band Neutrophils # Lymphocytes # (Manual) (0.6-2.4) Monocytes # (Manual) (0.0-0.8) Nucleated RBCs # K/uL INR APTT (18.6-31.3) SEC ABG pH (7.35-7.45) ABG pCO2 (35-45) mmHG ABG pO2 (75-100) mmHG ABG HCO3 (22-26) mEq/L ABG Total CO2 ABG Base Excess (-2.0-2.0) Lactate (0.20-2.00) mmol/L Sodium (136-148) mmol/L Potassium (3.5-5.1) mmol/L Chloride (98-107) mmol/L Carbon Dioxide (21.0-32.0) mmol/L BUN (7.0-18.0) mg/dL Creatinine (0.8-1.3) mg/dL Est Cr Clr Drug Dosing Estimated GFR (MDRD) ml/min Glucose (74-106) mg/dL POC Glucose > 500 H (60-110) mg/dL Calcium (8.5-10.1) mg/dL Magnesium (1.8-2.4) mg/dL Total Bilirubin (0.2-1.0) mg/dL AST (15-37) IU/L ALT (14-63) IU/L Alkaline Phosphatase (46-116) U/L Troponin I (0.000-0.056) ng/mL C-Reactive Protein (0.00-0.90) mg/dL B-Natriuretic Peptide (<100) PG/ML Total Protein (6.4-8.2) g/dL Albumin (3.4-5.0) g/dL Globulin (2.6-4.0) g/dL Albumin/Globulin Ratio (0.9-1.6) Lipase (73-393) U/L Urine Color Urine Appearance Urine pH (5.0-8.0) Ur Specific Halfway (1.001-1.035) Urine Protein (NEGATIVE) mg/dL Urine Glucose (UA) (NEGATIVE) mg/dL Urine Ketones (NEGATIVE) mg/dL Urine Occult Blood (NEGATIVE) Urine Nitrite (NEGATIVE) Urine Bilirubin (NEGATIVE) Urine Urobilinogen (<2.0) EU/dL Ur Leukocyte Esterase (NEGATIVE) Ketones NEGATIVE (NEG) SARS CoV-2 RNA Rapid YAZMIN NEGATIVE (NEGATIVE) 07/19/20 07/19/20 07/19/20 Range/Units 13:59 14:05 14:50 WBC (4.0-11.0) K/uL RBC (4.50-5.90) M/uL Hgb (13.0-17.0) g/dL Hct (38.0-50.0) % MCV (80.0-98.0) fL MCH (27.0-32.0) pg MCHC (31.0-37.0) g/dL RDW Std Deviation (28.0-62.0) fl RDW Coeff of Steven (11.0-15.0) % Plt Count (150-400) K/uL MPV (7.40-12.00) fL Add Manual Diff Neutrophils % (Manual) (48.0-80.0) % Band Neutrophils % % Lymphocytes % (Manual) (16.0-40.0) % Monocytes % (Manual) (0.0-15.0) % Nucleated RBC % /100WBC Absolute Seg Neuts (1.4-5.7) Band Neutrophils # Lymphocytes # (Manual) (0.6-2.4) Monocytes # (Manual) (0.0-0.8) Nucleated RBCs # K/uL INR APTT (18.6-31.3) SEC ABG pH 7.310 L (7.35-7.45) ABG pCO2 43 (35-45) mmHG ABG pO2 75 (75-100) mmHG ABG HCO3 21 L (22-26) mEq/L ABG Total CO2 20.9 ABG Base Excess -4.5 L (-2.0-2.0) Lactate (0.20-2.00) mmol/L Sodium (136-148) mmol/L Potassium (3.5-5.1) mmol/L Chloride (98-107) mmol/L Carbon Dioxide (21.0-32.0) mmol/L BUN (7.0-18.0) mg/dL Creatinine (0.8-1.3) mg/dL Est Cr Clr Drug Dosing Estimated GFR (MDRD) ml/min Glucose (74-106) mg/dL POC Glucose 400 H 365 H (60-110) mg/dL Calcium (8.5-10.1) mg/dL Magnesium (1.8-2.4) mg/dL Total Bilirubin (0.2-1.0) mg/dL AST (15-37) IU/L ALT (14-63) IU/L Alkaline Phosphatase (46-116) U/L Troponin I (0.000-0.056) ng/mL C-Reactive Protein (0.00-0.90) mg/dL B-Natriuretic Peptide (<100) PG/ML Total Protein (6.4-8.2) g/dL Albumin (3.4-5.0) g/dL Globulin (2.6-4.0) g/dL Albumin/Globulin Ratio (0.9-1.6) Lipase (73-393) U/L Urine Color Urine Appearance Urine pH (5.0-8.0) Ur Specific Halfway (1.001-1.035) Urine Protein (NEGATIVE) mg/dL Urine Glucose (UA) (NEGATIVE) mg/dL Urine Ketones (NEGATIVE) mg/dL Urine Occult Blood (NEGATIVE) Urine Nitrite (NEGATIVE) Urine Bilirubin (NEGATIVE) Urine Urobilinogen (<2.0) EU/dL Ur Leukocyte Esterase (NEGATIVE) Ketones (NEG) SARS CoV-2 RNA Rapid YAZMIN (NEGATIVE) 07/19/20 Range/Units 16:14 WBC (4.0-11.0) K/uL RBC (4.50-5.90) M/uL Hgb (13.0-17.0) g/dL Hct (38.0-50.0) % MCV (80.0-98.0) fL MCH (27.0-32.0) pg MCHC (31.0-37.0) g/dL RDW Std Deviation (28.0-62.0) fl RDW Coeff of Steven (11.0-15.0) % Plt Count (150-400) K/uL MPV (7.40-12.00) fL Add Manual Diff Neutrophils % (Manual) (48.0-80.0) % Band Neutrophils % % Lymphocytes % (Manual) (16.0-40.0) % Monocytes % (Manual) (0.0-15.0) % Nucleated RBC % /100WBC Absolute Seg Neuts (1.4-5.7) Band Neutrophils # Lymphocytes # (Manual) (0.6-2.4) Monocytes # (Manual) (0.0-0.8) Nucleated RBCs # K/uL INR APTT (18.6-31.3) SEC ABG pH (7.35-7.45) ABG pCO2 (35-45) mmHG ABG pO2 (75-100) mmHG ABG HCO3 (22-26) mEq/L ABG Total CO2 ABG Base Excess (-2.0-2.0) Lactate (0.20-2.00) mmol/L Sodium (136-148) mmol/L Potassium (3.5-5.1) mmol/L Chloride (98-107) mmol/L Carbon Dioxide (21.0-32.0) mmol/L BUN (7.0-18.0) mg/dL Creatinine (0.8-1.3) mg/dL Est Cr Clr Drug Dosing Estimated GFR (MDRD) ml/min Glucose (74-106) mg/dL POC Glucose (60-110) mg/dL Calcium (8.5-10.1) mg/dL Magnesium (1.8-2.4) mg/dL Total Bilirubin (0.2-1.0) mg/dL AST (15-37) IU/L ALT (14-63) IU/L Alkaline Phosphatase (46-116) U/L Troponin I (0.000-0.056) ng/mL C-Reactive Protein (0.00-0.90) mg/dL B-Natriuretic Peptide (<100) PG/ML Total Protein (6.4-8.2) g/dL Albumin (3.4-5.0) g/dL Globulin (2.6-4.0) g/dL Albumin/Globulin Ratio (0.9-1.6) Lipase (73-393) U/L Urine Color YELLOW Urine Appearance SLT CLOUDY Urine pH 5.0 (5.0-8.0) Ur Specific Halfway 1.020 (1.001-1.035) Urine Protein NEGATIVE (NEGATIVE) mg/dL Urine Glucose (UA) NEGATIVE (NEGATIVE) mg/dL Urine Ketones NEGATIVE (NEGATIVE) mg/dL Urine Occult Blood NEGATIVE (NEGATIVE) Urine Nitrite NEGATIVE (NEGATIVE) Urine Bilirubin NEGATIVE (NEGATIVE) Urine Urobilinogen 0.2 (<2.0) EU/dL Ur Leukocyte Esterase NEGATIVE (NEGATIVE) Ketones (NEG) SARS CoV-2 RNA Rapid YAZMIN (NEGATIVE) Meds: Medications Generic Name Dose Route Start Last Admin Trade Name Freq PRN Reason Stop Dose Admin Dextrose/Water 50 ml 07/19/20 13:05 Dextrose 50% In Water IV ASDIRECTED PRN Hypoglycemia Dextrose/Water 50 ml 07/19/20 13:08 Dextrose 50% In Water IV ASDIRECTED PRN Hypoglycemia Dextrose/Water 50 ml 07/19/20 13:21 Dextrose 50% In Water IV ASDIRECTED PRN Hypoglycemia Glucagon 1 mg 07/19/20 13:08 Glucagen IM ASDIRECTED PRN Hypoglycemia Glucagon 1 mg 07/19/20 13:21 Glucagen IM ASDIRECTED PRN Hypoglycemia Sodium Chloride 1,000 mls @ 999 mls/hr 07/19/20 15:15 07/19/20 15:15 Normal Saline IV 999 mls/hr ASDIRECTED ARNOLD Administration Sodium Chloride 10 ml 07/19/20 12:10 Saline Flush FLUSH ASDIRECTED PRN Keep Vein Open Sodium Chloride 2.5 ml 07/19/20 12:10 Saline Flush FLUSH ASDIRECTED PRN Keep Vein Open Discontinued Medications Generic Name Dose Route Start Last Admin Trade Name Freq PRN Reason Stop Dose Admin Albuterol Confirm 07/19/20 13:28 07/19/20 14:01 Proventil Neb Soln Administered 07/19/20 13:29 2.5 mg Dose Administration 2.5 mg .ROUTE .STK-MED ONE Albuterol/Ipratropium 3 ml 07/19/20 13:03 Duoneb 3.0-0.5 Mg/3 Ml NEB 07/19/20 13:04 ONETIME ONE Calcium Gluconate 1 gm 07/19/20 13:03 07/19/20 13:11 Calcium Gluconate IVPUSH 07/19/20 13:04 1 gm ONETIME ONE Administration Glucagon 1 mg 07/19/20 13:05 Glucagen IM ASDIRECTED PRN Hypoglycemia Haloperidol Lactate 5 mg 07/19/20 12:13 07/19/20 12:31 Haldol IM 07/19/20 12:14 5 mg ONETIME ONE Administration Haloperidol Lactate Confirm 07/19/20 12:14 07/19/20 12:42 Haldol Administered 07/19/20 12:15 Not Given Dose 5 mg .ROUTE .STK-MED ONE Piperacillin Sod/Tazobactam 50 mls @ 100 mls/hr 07/19/20 12:42 07/19/20 13:34 Sod 3.375 gm/ Sodium Chloride IV 07/19/20 13:11 100 mls/hr ONETIME ONE Administration Sodium Chloride 1,000 mls @ 999 mls/hr 07/19/20 12:48 07/19/20 13:00 Normal Saline IV 07/19/20 13:48 999 mls/hr .Bolus ONE Administration Sodium Chloride 1,000 mls @ 999 mls/hr 07/19/20 12:48 07/19/20 12:30 Normal Saline IV 07/19/20 13:48 999 mls/hr .Bolus ONE Administration Insulin Human Regular 100 unit 100 mls @ 0 mls/hr 07/19/20 13:15 / Sodium Chloride IV TITRATE ARNOLD Protocol 0.1 UNIT/KG/HR Norepinephrine Bitartrate 4 mg in 250 mls @ as directed 07/19/20 16:11 Norepinephr-0.9% Nacl 4 Mg/250 IV 07/19/20 16:12 .STK-MED ONE Insulin Human Regular 15 unit 07/19/20 13:05 07/19/20 13:26 Novolin R IVPUSH 07/19/20 13:06 Not Given ONETIME ONE Protocol Insulin Human Regular 10 unit 07/19/20 13:08 07/19/20 13:22 Novolin R IVPUSH 07/19/20 13:09 Not Given ONETIME ONE Protocol Insulin Human Regular 15 unit 07/19/20 13:21 07/19/20 13:26 Novolin R IVPUSH 07/19/20 13:22 15 units ONETIME ONE Administration Protocol - Re-Assessments/Exams Free Text/Narrative Re-Assessment/Exam: 07/19/20 12:34 Patient required 5 mg of Haldol for sedation as he was swinging at staff. Was difficult to get patient to lay in bed, he moved to the end of the bed breaking the bed. He was sat in a bariatric chair and appears much more comfortable. Anesthesia was consulted for difficult IV access. Will follow up labs, ABG, c hest x-ray and disposition accordingly. Suspect CO2 retention given patient's combative behavior. BiPAP is on standby; patient is oxygenating well at 94-95% on RA. 07/19/20 12:41 ABG w/o evidence of CO2 retention; pO2 is low. Lactic acid is elevated to 4.8. Bipap is starting. Will treat for sepsis w/u while awaiting other results. 07/19/20 13:09 potassium of 7.1, evidence TANYA, glucose of 555. AGAP 11. Negative serum ketones. Will give insulin 15units, calcium gluconate 1gm. Will f/u additional labs and admit 07/19/20 16:08 Central line was placed for better access and 2/2 hypotension. Norepi bag hung and brought for flight. Patient is leaving ED for flight to [place]. Departure - Departure Time of Disposition: 16:09 Disposition: DC/Tfer to Acute Hospital 02 Condition: Serious Clinical Impression: TANYA (acute kidney injury) Sepsis Qualifiers: Sepsis type: sepsis due to unspecified organism Sepsis acute organ dysfunction status: with acute organ dysfunction Severe sepsis acute organ dysfunction type: acute renal failure Acute renal failure type: unspecified Severe sepsis shock status: unspecified Qualified Code(s): A41.9 - Sepsis, unspecified organism - Discharge Information Referrals: Abhinav Quevedo MD [Primary Care Provider] - Forms: ED Department Discharge Critical Care Note - Critical Care Note Total Time (mins): 45 Sepsis Event Note (ED) - Focused Exam Vital Signs: Vital Signs Temp Temp Pulse Resp BP Pulse Ox 07/19/20 15:03 95.2 F L 70 24 H 97 07/19/20 14:52 75 24 H 73/37 L 95 07/19/20 13:43 100 24 H 82/46 L 100 07/19/20 12:35 95 F L 76 24 H 97 - My Orders Last 24 Hours: My Active Orders 07/19/20 12:10 EKG Documentation Completion [RC] STAT CORONAVIRUS COVID-19 PCR PHL Stat Sodium Chloride 0.9% [Saline Flush] 10 ml FLUSH ASDIRECTED PRN Sodium Chloride 0.9% [Saline Flush] 2.5 ml FLUSH ASDIRECTED PRN 07/19/20 12:11 Cardiac Monitoring [RC] . DIRECTED Pulse Oximetry [RC] ASDIRECTED Saline Lock Insert [OM.PC] Stat 07/19/20 12:43 Blood Culture x2 Reflex Set [OM.PC] Stat 07/19/20 12:54 RT BiPAP/CPAP [RC] ASDIRECTED 07/19/20 13:00 CULTURE BLOOD [BC] Stat 07/19/20 13:05 Dextrose 50% in Water 50 ml IV ASDIRECTED PRN 07/19/20 13:08 Dextrose 50% in Water 50 ml IV ASDIRECTED PRN Glucagon,Human Recombinant [GlucaGen] 1 mg IM ASDIRECTED PRN 07/19/20 13:10 CULTURE BLOOD [BC] Stat 07/19/20 13:21 Dextrose 50% in Water 50 ml IV ASDIRECTED PRN Glucagon,Human Recombinant [GlucaGen] 1 mg IM ASDIRECTED PRN 07/19/20 15:15 Sodium Chloride 0.9% [Normal Saline] 1,000 ml IV ASDIRECTED - Assessment/Plan Last 24 Hours: My Active Orders 07/19/20 12:10 EKG Documentation Completion [RC] STAT CORONAVIRUS COVID-19 PCR PHL Stat Sodium Chloride 0.9% [Saline Flush] 10 ml FLUSH ASDIRECTED PRN Sodium Chloride 0.9% [Saline Flush] 2.5 ml FLUSH ASDIRECTED PRN 07/19/20 12:11 Cardiac Monitoring [RC] . DIRECTED Pulse Oximetry [RC] ASDIRECTED Saline Lock Insert [OM.PC] Stat 07/19/20 12:43 Blood Culture x2 Reflex Set [OM.PC] Stat 07/19/20 12:54 RT BiPAP/CPAP [RC] ASDIRECTED 07/19/20 13:00 CULTURE BLOOD [BC] Stat 07/19/20 13:05 Dextrose 50% in Water 50 ml IV ASDIRECTED PRN 07/19/20 13:08 Dextrose 50% in Water 50 ml IV ASDIRECTED PRN Glucagon,Human Recombinant [GlucaGen] 1 mg IM ASDIRECTED PRN 07/19/20 13:10 CULTURE BLOOD [BC] Stat 07/19/20 13:21 Dextrose 50% in Water 50 ml IV ASDIRECTED PRN Glucagon,Human Recombinant [GlucaGen] 1 mg IM ASDIRECTED PRN 07/19/20 15:15 Sodium Chloride 0.9% [Normal Saline] 1,000 ml IV ASDIRECTED
[2020-07-19] MEDS ORDERED: Piperacillin/Tazobactam 3.375 GM in Sodium Chloride 0.9% 50 ML IV ONE (12:42)
[2020-07-19] MEDS ORDERED: Sodium Chloride 0.9% 1,000 ML IV ONE ×2 (12:48)
[2020-07-19 12:59] LABS: BLOOD UREA NITROGEN,BUN 171 mg/dL (7.0-18.0); CARBON DIOXIDE,CO2 21.8 mmol/L (21.0-32.0); CHLORIDE,CL 95 mmol/L (98-107); LIPASE 305 U/L (73-393); SODIUM,NA 128 mmol/L (136-148)
[2020-07-19 13:02] LABS: GLUCOSE RANDOM 555 mg/dL (74-106); POTASSIUM,K 7.1 mmol/L (3.5-5.1)
[2020-07-19] MEDS ORDERED: Calcium Gluconate 10% 1 GM/10 ML SDV IVPUSH ONE (13:03)
[2020-07-19] MEDS ORDERED: Albuterol/Ipratropium 3.0-0.5 MG/3 ML Neb Soln NEB ONE (13:03)
--- NOTE | 2020-07-19 13:04 | CR ---
HISTORY: Shortness breath COMPARISON: 12/06/2017 FINDINGS: A portable erect AP view of the chest was obtained at 12 40 hours. The lungs remain clear. No focal or diffuse infiltrates are present. The heart remains mildly enlarged. Again seen is a left sided pacemaker with leads entering the left subclavian vein and terminating in the right atrium and right ventricle. The mediastinum is otherwise normal in appearance. The osseous structures are normal in appearance for the patient`s age. IMPRESSION: Stable mild cardiomegaly. Otherwise no active disease seen in the chest. Dictated by Amrit Decker MD @ Jul 19 2020 1:01PM Signed by Dr. Amrit Decker @ Jul 19 2020 1:03PM
[2020-07-19] MEDS ORDERED: Insulin Regular, Human 100 Units/ML 10 ML Vial IVPUSH ONE ×2 (13:05→13:21)
[2020-07-19] MEDS ORDERED: Glucagon,Human Recombinant 1 MG Vial IM PRN ×3 (13:05→13:21)
[2020-07-19] MEDS ORDERED: 50% Dextrose in Water 50 ML Syringe IV PRN ×3 (13:05→13:21)
[2020-07-19] MEDS: Insulin Regular, Human 100 Units/ML 10 ML Vial IVPUSH ONE ×2 (13:15→13:22)
[2020-07-19] MEDS ORDERED: Albuterol 0.083% 2.5 MG/3 ML Neb Soln ONE (13:28)
[2020-07-19 15:05] VITALS: PULSE 70
[2020-07-19] MEDS ORDERED: Sodium Chloride 0.9% 1,000 ML IV SCH (15:15)
[2020-07-19 18:47] VITALS: BP 74/37
== END 2020-07-19 16:50 ==
LOC: MW.ED 12:07
DX: A41.9 Sepsis, unspecified organism (principal); R65.20 Severe sepsis without septic shock; N17.9 Acute kidney failure, unspecified; I10 Essential (primary) hypertension; I48.91 Unspecified atrial fibrillation; I25.10 Atherosclerotic heart disease of native coronary artery without angina pectoris; J44.9 Chronic obstructive pulmonary disease, unspecified; E66.9 Obesity, unspecified; Z86.73 Personal history of transient ischemic attack (TIA), and cerebral infarction without residual deficits; Z88.2 Allergy status to sulfonamides; Z79.899 Other long term (current) drug therapy; Z79.01 Long term (current) use of anticoagulants; Z20.828 Contact with and (suspected) exposure to other viral communicable diseases
CPT/HCPCS: 36415; 36556; 36600; 71045; 80053; 81003; 82009; 82803; 82962; 83605; 83690; 83735; 83880; 84484; 85025; 85610; 85730; 86140; 87040; 93005; 94640; 94660; 96365; 96375; 99151; 99285; J0610; J1630; J2543; J7030; J7050; U0002; 36410; 93010; J1815-GY